=== PATIENT | female | born 1975 | race Caucasian/White ===

== ENCOUNTER 2021-10-09 09:22 | Emergency (ER) | payer BC ==
[~2021-10-09] VITALS: Ht 172.7 cm; Wt 72.7 kg
[2021-10-09 09:46] VITALS: BP 129/81
[2021-10-09 11:02] LABS: ALANINE AMINOTRANSFERASE 25 U/L (12-78); ALBUMIN 4.5 G/DL (3.4-5.0); ALBUMIN/GLOBULIN RATIO 1.3 (1.1-1.5); ALKALINE PHOSPHATASE 58 IU/L (46-116); ANION GAP 11 (8-16); ASPARTATE AMINO TRANSFERASE 23 U/L (10-37); BILIRUBIN,TOTAL 0.6 MG/DL (0.1-1.0); BLOOD UREA NITROGEN 16 MG/DL (7-18); BUN/CREATININE RATIO 13.7 (6.6-38.0); CALCIUM 9.5 MG/DL (8.5-10.1); CHLORIDE 100 MMOL/L (99-107); CREATININE 1.17 MG/DL (0.40-0.90); GLUCOSE 117 MG/DL (70-104); POTASSIUM 4.2 MMOL/L (3.5-5.1); SODIUM 138 MMOL/L (135-145); TOTAL CARBON DIOXIDE 26.9 MMOL/L (24-32); TOTAL PROTEIN 7.9 G/DL (6.4-8.2); eGFR 49 ML/MIN
[2021-10-09 11:11] LABS: D-DIMER < 0.19 MG/L FEU (0-0.50)
[2021-10-09] MEDS ORDERED: LOP12.5T PO (11:50)
== END 2021-10-09 12:02 | disposition home or self-care (01) ==
LOC: ER 09:23
DX: R00.2 Palpitations (principal); R14.0 Abdominal distension (gaseous); F31.9 Bipolar disorder, unspecified; Z79.899 Other long term (current) drug therapy
CPT/HCPCS: 36415; 80053; 84484; 85379; 93005; 99284